=== PATIENT | female | born 1985 | race Caucasian/White ===

== ENCOUNTER 2022-10-23 21:25 | Emergency (ER) | payer MEDICAID, OTHER ==
[~2022-10-23] VITALS: Ht 157.5 cm; Wt 61.1 kg
--- NOTE | 2022-10-23 21:36 | ED Integumentary General ---
General Stated Complaint: POSS BUG BITE IN UPPER CHEST History of Present Illness Date Seen by Provider: Oct 23, 2022 Time Seen by Provider: 21:36 Initial Comments 37-year-old female presents with a sore on her left breast. She reports is been there for 3 days is gotten a little bit redder and warmer. There is no drainage. There is mild "bump" she reports she has had a history of similar abscess in her armpit that was positive for MRSA. Allergies and Home Medications Patient Home Medication List Home Medication List Reviewed: Yes Review of Systems Review of Systems Constitutional: No chills, No fever EENTM: no symptoms reported Respiratory: no symptoms reported Cardiovascular: no symptoms reported Gastrointestinal: no symptoms reported Genitourinary: no symptoms reported Musculoskeletal: no symptoms reported Skin: see HPI Physical Exam Vital Signs Capillary Refill : General Appearance: WD/WN, no apparent distress Cardiovascular: normal peripheral pulses, regular rate, rhythm Respiratory: lungs clear, normal breath sounds Extremities: normal range of motion Neurologic/Psychiatric: alert, normal mood/affect Skin Problem Location: other (Left breast) Skin Problem Character: erythema, warm, other (Mild induration, no drainable ab scess noted) Progress/Results/Core Measures Progress Progress Note : Progress Note Patient with cellulitis with induration but no drainable abscess at this time. Due to her history of MRSA we will start her on Bactrim. Recommend warm compress. If becomes softer and appears where it could be draining she follow- up with her primary care provider for recheck and possible drainage. Departure Impression Primary Impression: Cellulitis of left breast Disposition: HOME, SELF-CARE Condition: Stable Departure-Patient Inst. Referrals: NO,LOCAL PHYSICIAN (PCP/Family) Primary Care Physician Patient Instructions: MRSA (DC), Cellulitis (Skin Infection), Child (DC) Add. Discharge Instructions: Warm compress 5 to 10 minutes 3-4 times daily. Follow-up with primary care provider next week if it not improving or if it becomes a drainable abscess Scripts Sulfamethoxazole/Trimethoprim (Bactrim Ds Tablet) 1 Each Tablet 1 EACH PO BID, #20 TAB 0 Refills Prov: WOLFF,TOMMIE L DO 10/23/22 WOLFF,TOMMIE L DO Oct 23, 2022 21:36
[2022-10-23] MEDS ORDERED: SULF1TAB38 PO (21:42)
[2022-10-23] MEDS ORDERED: TRIM/SULFAMETH 160/800 (SEPTRA DS) TAB PO ONE (21:45)
[2022-10-23 21:48] VITALS: BP 167/103
== END 2022-10-23 21:48 | disposition home or self-care (01) ==
LOC: ER FS 21:31
DX: N61.0 Mastitis without abscess (principal); Z28.310 Unvaccinated for COVID-19
CPT/HCPCS: 99283

== ENCOUNTER 2023-02-09 07:43 | Emergency (ER) | payer MEDICAID ==
[~2023-02-09] VITALS: Ht 157.4 cm; Wt 61.1 kg
[~2023-02-09 07:43] MED LIST: SULF1TAB38 PO
[2023-02-09] MEDS ORDERED: methylPREDNISolone 80 MG/ML (DEPO MEDROL) VIAL IM STA (07:54)
[2023-02-09] MEDS ORDERED: HYDR-700 PO (07:58)
--- NOTE | 2023-02-09 08:01 | ED Integumentary General ---
General Chief Complaint: Skin/Wound Problems Stated Complaint: ITCHY RASH Source: patient History of Present Illness Date Seen by Provider: Feb 09, 2023 Time Seen by Provider: 07:46 Initial Comments 37-year-old female presenting with complaints of generalized rash with itching. She states it started on her left arm [place] She reports walking through several areas of high grass and weeds. She has not had symptoms like this previously. Since starting on her left arm it has spread to her chest, other arm, both legs. She denies any shortness of breath or difficulty breathing, trouble swallowing, swelling in her mouth or throat. She has been taking Benadryl and using calamine lotion with little to no improvement. She denies any allergies to medications. She denies any new medications, [id number]-assghvx pills, clothes, detergents, soaps, fragrances. Timing/Duration: getting worse (Over the last 3 to 4 days) Severity: moderate Location: generalized Possible Cause: no cause identified Modifying Factors: improves with antihistamine (Minimal improvement with Benadryl); worse with scratching Associated Symptoms: No blisters, No change in skin texture, No edema, No fever, No flushing, No headache, No hives, No jaundice, No malaise, No nasal congestion, No numbness, No pallor, No paresthesia, No petechiae; rash; No sore throat, No swelling/mass/lumps, No tingling Allergies and Home Medications Allergies Coded Allergies: No Known Drug Allergies (Unverified , 10/23/22) Patient Home Medication List Home Medication List Reviewed: Yes Hydroxyzine HCl (Hydroxyzine HCl) 25 Mg Tablet, 25 MG PO Q4H PRN for ITCHING AND RASH Prescribed by: MORALES DURAN on 02/09/23 3067 Discontinued Medications Sulfamethoxazole/Trimethoprim (Bactrim Ds Tablet) 1 Each Tablet, 1 EACH PO BID Prescribed by: TOMMIE WOLFF on 10/23/22 3535 Review of Systems Review of Systems Constitutional: No chills, No fever EENTM: No nose congestion, No throat swelling Respiratory: No cough, No short of breath Cardiovascular: no symptoms reported Gastrointestinal: no symptoms reported Genitourinary: no symptoms reported Musculoskeletal: no symptoms reported Skin: see HPI Psychiatric/Neurological: No Symptoms Reported Past Uoivjcr-Nuqfdz-Izftan Hx Patient Social History Tobacco Use?: Yes Tobacco type used: Cigarettes Smoking Status: Current Everyday Smoker Substance use?: Yes Substance type: Marijuana Immunizations Up To Date First/Initial COVID19 Vaccinat: NONE Second COVID19 Vaccination Toni: NONE Third COVID19 Vaccination Date: NONE Past Medical History Surgery/Hospitalization HX: LEFT LUNG LOBECTOMY, METAL HARDWARE RT HIP, IBS, PARTIAL HYSTERECTOMY, RECURRENT SPONTANEOUS PNEUMOTHORAX X 3 Surgeries: Yes Hysterectomy, Lobectomy, Orthopedic Respiratory: No Cardiac: Yes Hypertension Physical Exam Vital Signs Vital Signs - First Documented 02/09/23 07:49 Temp 35.5 Pulse 76 Resp 16 B/P (MAP) 163/109 (127) Pulse Ox 100 O2 Delivery Room Air Capillary Refill : General Appearance: WD/WN, no apparent distress HEENT: PERRL/EOMI, pharynx normal Neck: non-tender, full range of motion, supple, normal inspection Cardiovascular: normal peripheral pulses, regular rate, rhythm Respiratory: chest non-tender, lungs clear, normal breath sounds, no respiratory distress, no accessory muscle use Extremities: normal range of motion, non-tender, normal capillary refill Neurologic/Psychiatric: alert Skin: warm/dry, rash (diffuse erythematous papular rash with some excoriation in areas) Skin Problem Location: generalized Skin Problem Character: erythema, papules Progress/Results/Core Measures Results/Orders My Orders Orders - MORALES DURAN MD Dexamethasone Injection (Decadron Inje (02/09/23 07:54) Methylprednisolone Acetate Inj (Depo-Med (02/09/23 07:54) Vital Signs/I&O 02/09/23 07:49 Temp 35.5 Pulse 76 Resp 16 B/P (MAP) 163/109 (127) Pulse Ox 100 O2 Delivery Room Air Progress Progress Note : Progress Note Potential diagnosis of contact dermatitis, allergic reaction, hives. Since this started after [place] in [place] river this may be more of a contact dermatitis. Since she is not having any difficulty breathing and does not appear to be a severe allergic reaction. Since she was not having much improvement with the [id number]-[id number] antihistamines and Benadryl will prescribe hydroxyzine 25 mg every 4 hours as needed for itch and rash x5 days. Also will administer steroid and patient opted for injection here in the ED. Ordered dexamethasone 10 mg IM x1 and Depo-Medrol 80 mg IM x1. Encouraged to try [id number] Pepcid or famotidine 20 mg up to every 12 hours to try and give some additional antihistamine effect. Counseled on follow-up and return precaut ions. Departure Impression Primary Impression: Rash and nonspecific skin eruption Additional Impression: Contact dermatitis and other eczema, due to unspecified cause Disposition: 01 HOME, SELF-CARE Condition: Stable Departure-Patient Inst. Decision time for Depature: 07:56 Referrals: NO,LOCAL PHYSICIAN (PCP) Primary Care Physician [facility] [place] Patient Instructions: Contact Dermatitis (DC), Skin Rash ED Add. Discharge Instructions: The steroids will continue to help with itching and rash over the next 7 to 10 days from the shots you were given today of dexamethasone and depo-medrol. You could try taking the hydroxyzine antihistamine in place of the Benadryl (diphenhydramine) to see if that helps more with your itching and rash. Over the counter you could also take Pepcid (Famotidine) 20 mg twice a day to help with itching and rash since it is a weak histamine leo as well. If having trouble breathing, trouble swallowing or feeling short of breath with wheezing then you should be seen again as you may need IV medications to treat for allergic reaction. All discharge instructions reviewed with patient and/or family. Voiced understanding. Scripts Hydroxyzine HCl (Hydroxyzine HCl) 25 Mg Tablet 25 MG PO Q4H PRN for ITCHING AND RASH for 5 Days, #30 TAB 0 Refills Prov: MORALES DURAN MD 02/09/23 MORALES DURAN MD Feb 09, 2023 08:01
[2023-02-09 08:19] VITALS: BP 163/109
[2023-02-11] MEDS ORDERED: PRD20T PO (18:34)
== END 2023-02-09 08:20 | disposition home or self-care (01) ==
LOC: EDUNIT# 07:43 → ER FS 07:45
DX: L25.9 Unspecified contact dermatitis, unspecified cause (principal); F17.210 Nicotine dependence, cigarettes, uncomplicated
CPT/HCPCS: 99284